=== PATIENT | female | born 1950 | race Caucasian/White ===

== ENCOUNTER → 2016-10-04 | Outpatient (CLI) | payer OTHER, BC, MEDICARE | LOC: MMPC 09:00 | PROVIDERS: ATTEND Internal Medicine | DX: Z51.89 Encounter for other specified aftercare (principal) | CPT/HCPCS: 95115 ==

== ENCOUNTER → 2016-10-14 | Outpatient (CLI) | payer OTHER, BC, MEDICARE | LOC: MMPC 09:00 | PROVIDERS: ATTEND Internal Medicine | DX: Z51.89 Encounter for other specified aftercare (principal) | CPT/HCPCS: 95115 ==

== ENCOUNTER → 2017-01-07 | Outpatient (CLI) | payer OTHER, BC, MEDICARE | LOC: MMPC 11:11 | PROVIDERS: ATTEND Internal Medicine | DX: E03.9 Hypothyroidism, unspecified (principal); E78.5 Hyperlipidemia, unspecified; K52.89 Other specified noninfective gastroenteritis and colitis; F31.9 Bipolar disorder, unspecified; R41.3 Other amnesia | CPT/HCPCS: 99214; G0463 ==

== ENCOUNTER → 2017-02-26 | Outpatient (CLI) | payer OTHER, BC, MEDICARE ==
[2017-02-26 15:48] LABS: BILIRUBIN,URINE NEGATIVE (NEG); CLARITY,URINE Slightly Cloudy (CLEAR); COLOR,URINE YELLOW; GLUCOSE, URINE (UA) NEGATIVE (NEG); NITRATE,URINE NEGATIVE (NEG); OCCULT BLOOD,URINE MODERATE (NEG); PROTEIN,URINE NEGATIVE (NEG); UROBILINOGEN,URINE 0.2 EU/dL (0.2)
[2017-02-26 15:52] LABS: URINE SAMPLE TYPE CLEAN CATCH URINE
[2017-02-26 15:53] LABS: BACTERIA,URINE FEW; SQUAMOUS EPITHELIAL CELL,UR RARE; WBC,URINE 25-40
== END ==
LOC: LAB 15:35
PROVIDERS: ATTEND Physician Assistant
DX: R30.0 Dysuria (principal); R82.99 Other abnormal findings in urine
CPT/HCPCS: 81001; 87077; 87088; 87186

== ENCOUNTER → 2017-03-15 | Outpatient (CLI) | payer OTHER, BC, MEDICARE | LOC: MMPC 11:11 | PROVIDERS: ATTEND Internal Medicine | DX: B95.2 Enterococcus as the cause of diseases classified elsewhere (principal) | CPT/HCPCS: 99213; G0463 ==

== ENCOUNTER → 2017-04-14 | Outpatient (CLI) | payer OTHER, BC, MEDICARE | LOC: MMPC 09:00 | PROVIDERS: ATTEND Nurse Practitioner Family | DX: F43.23 Adjustment disorder with mixed anxiety and depressed mood (principal); R61 Generalized hyperhidrosis; R41.3 Other amnesia; Z86.39 Personal history of other endocrine, nutritional and metabolic disease ==

== ENCOUNTER → 2017-04-18 | Outpatient (CLI) | payer OTHER, BC, MEDICARE ==
[2017-04-18 14:10] LABS: HEMOGLOBIN A1C 5.53 % (4.2-6.0)
== END ==
LOC: LAB 13:14
PROVIDERS: ATTEND Nurse Practitioner Family
DX: R61 Generalized hyperhidrosis (principal); K31.84 Gastroparesis; E16.2 Hypoglycemia, unspecified; Z83.3 Family history of diabetes mellitus
CPT/HCPCS: 36415; 82947; 83036